=== PATIENT | female | born 1955 | race Caucasian/White ===

== ENCOUNTER 2020-01-12 12:09 | Observation (INO) ==
[2020-01-12 12:57] LABS: BASOPHILS % (AUTO) 0.5 % (0.2-1.0); EOSINOPHILS % (AUTO) 0.2 % (0.9-2.9); HEMATOCRIT 37.4 % (36.0-47.0); HEMOGLOBIN 12.7 g/dL (12.0-16.0); LYMPHOCYTES # (AUTO) 0.4 X10^3/uL (1.3-2.9); LYMPHOCYTES % (AUTO) 12.6 % (21.0-51.0); MEAN CORPUSCULAR HEMOGLOBIN 30.1 pg (27.0-34.0); MEAN CORPUSCULAR VOLUME 88.6 fL (80.0-100.0); MEAN PLATELET VOLUME 8.8 fL (7.4-11.0); MONOCYTES # (AUTO) 0.3 x10^3/uL (0.3-0.8); MONOCYTES % (AUTO) 7.6 % (0.0-13.0); NEUTROPHILS # (AUTO) 2.7 x10^3/uL (2.2-4.8); NEUTROPHILS % (AUTO) 79.1 % (42.0-75.0); PLATELET COUNT 146 X10^3/uL (150.0-450.0); RED BLOOD COUNT 4.22 X10^6/uL (3.5-5.4); RED CELL DISTRIBUTION WIDTH 12.7 % (11.6-16.5); WHITE BLOOD COUNT 3.4 X10^3/uL (3.6-10.0)
[2020-01-12 13:04] LABS: ABG BASE EXCESS 9.4 mmol/L (-2.0-2.0)
[2020-01-12 13:05] LABS: ABG ALLEN TEST POS; ABG HCO3 32.4 mmol/L (22-26)
[2020-01-12 13:09] LABS: ALBUMIN 3.1 g/dL (3.4-5.0); CALCIUM 7.8 mg/dL (8.5-10.1); CARBON DIOXIDE 32.8 mmol/L (21-32); COR CA(FOR HYPOALB) 8.5 mg/dL (8.5-10.1); CREATININE 1.18 mg/dL (0.55-1.02); TOTAL PROTEIN 6.6 g/dL (6.4-8.2)
--- NOTE | 2020-01-12 13:10 | RAD ---
CHEST, 1 VIEWHISTORY: SOBStudy: Single view of the chest.Comparison:NoneFindings:The cardiomediastinal silhouette is normal. Bilateral interstitial prominence, possible early alveolar infiltrates. No focal consolidations, pleural effusions or pneumothorax. Osseous structures demonstrate no acute abnormality.IMPRESSION:1. Bilateral interstitial prominence and early alveolar infiltrates. Findings may represent atypical infection, including viral etiologies.Electronically signed by: JEANMARIE WALTON (Jan 12, 2020 13:09:38)
--- NOTE | 2020-01-12 13:58 | DR.FEVERAD ---
HPI Time seen Time Seen by Provider: 01/12/20 12:37 PCP Primary Care Physician: BAO LEHMAN Complaints/Symptoms Chief Complaint:: PT C/O FEVER , WEAKNESS , PT TEST FOR COVID BY HER PCP PT AWAITING RESULTS ,BR Self Treatment fo Chief Complaint: LEVAQUIN , RESP [place], COVID-19 Coronavirus risk:travel/contact w/high risk person: No Has patient experienced Coronavirus symptoms: Yes Coronavirus symptoms experienced: Fever, Coughing and Shortness of Breath Source History Provided: Patient Mode of Arrival Mode of Arrival: Ambulatory Timing Onset of Chief Complaint: 01/06/20 PMH PMH Past Medical History: No Past Surgical History: Yes Surgical History: Appendectomy and Hysterectomy Past Surgical History Comment: KNEE SURGERY, CATARACT. Family History History of Family Medical Conditions: Yes Family Medical History: Diabetes Mellitus and Cancer Family Medical History Comment: SHERIF QUISPE Social History Does patient currently use any type of tobacco product: No Have you used tobacco products in the last 12 months: No Type of Tobacco Use: None Does any household member use tobacco: No Alcohol Use: None Do you use any recreational Drugs:: No Lives With: Family Lives Where: Home Travel Risk Coronavirus risk:travel/contact w/high risk person: No Has patient experienced Coronavirus symptoms: Yes Coronavirus symptoms experienced: Fever, Coughing and Shortness of Breath Infectious screening In the last 2 months have you had wt loss of >10#?: NO Have you had fever, night sweats or hemotysis?: No Have you traveled outside the country in the last 6 months?: No Isolation: Droplet PE Vital Signs Vitals: Temperature 97.6 F Pulse Rate 75 Respiratory Rate 20 Blood Pressure 140/63 O2 Sat by Pulse Oximetry 91 ROR Labs Reviewed Result Diagrams: 01/12/20 12:50 01/12/20 12:50 Laboratory: WBC 3.4 X10^3/uL (3.6-10.0) L 01/12/20 12:50 RBC 4.22 X10^6/uL (3.5-5.4) 01/12/20 12:50 Hgb 12.7 g/dL (12.0-16.0) 01/12/20 12:50 Hct 37.4 % (36.0-47.0) 01/12/20 12:50 MCV 88.6 fL (80.0-100.0) 01/12/20 12:50 MCH 30.1 pg (27.0-34.0) 01/12/20 12:50 MCHC 34.0 g/dL (33.0-35.0) 01/12/20 12:50 RDW 12.7 % (11.6-16.5) 01/12/20 12:50 Plt Count 146 X10^3/uL (150.0-450.0) L 01/12/20 12:50 MPV 8.8 fL (7.4-11.0) 01/12/20 12:50 Neut % (Auto) 79.1 % (42.0-75.0) H 01/12/20 12:50 Lymph % (Auto) 12.6 % (21.0-51.0) L 01/12/20 12:50 [place] % (Auto) 7.6 % (0.0-13.0) 01/12/20 12:50 Eos % (Auto) 0.2 % (0.9-2.9) L 01/12/20 12:50 Baso % (Auto) 0.5 % (0.2-1.0) 01/12/20 12:50 Neut # (Auto) 2.7 x10^3/uL (2.2-4.8) 01/12/20 12:50 Lymph # (Auto) 0.4 X10^3/uL (1.3-2.9) L 01/12/20 12:50 [place] # (Auto) 0.3 x10^3/uL (0.3-0.8) 01/12/20 12:50 Eos # (Auto) 0.0 x10^3/uL (0.0-0.2) 01/12/20 12:50 Baso # (Auto) 0.0 X10^3/uL (0.0-0.1) 01/12/20 12:50 Absolute Nucleated RBC 0.1 /100WBC 01/12/20 12:50 Sample Site Rr 01/12/20 12:37 ABG pH 7.550 (7.35-7.45) H 01/12/20 12:37 ABG pCO2 37.0 mmHg (35.0-45.0) 01/12/20 12:37 ABG pO2 54.0 mmHg (80.0-100.0) L 01/12/20 12:37 ABG HCO3 32.4 mmol/L (22-26) H* 01/12/20 12:37 ABG O2 Saturation 92.0 % (90-100) 01/12/20 12:37 ABG Base Excess 9.4 mmol/L (-2.0-2.0) H 01/12/20 12:37 Nicolás Test Pos 01/12/20 12:37 A-a Gradient 49.0 mmHg 01/12/20 12:37 FiO2 21.0 01/12/20 12:37 Blood Gas Comments Pt antony well. llj 01/12/20 12:37 Sodium 130 mmol/L (136-145) L 01/12/20 12:50 Corrected Sodium 130 mmol/L (136-145) L 01/12/20 12:50 Potassium 3.5 mmol/L (3.5-5.1) 01/12/20 12:50 Chloride 94 mmol/L (98-107) L 01/12/20 12:50 Carbon Dioxide 32.8 mmol/L (21-32) H 01/12/20 12:50 BUN 12 mg/dL (7-18) 01/12/20 12:50 Creatinine 1.18 mg/dL (0.55-1.02) H 01/12/20 12:50 Est GFR (MDRD) Af Amer 59 (>60) 01/12/20 12:50 Est GFR (MDRD) Non-Af 49 (>60) L 01/12/20 12:50 Glucose 115 mg/dL (65-99) H 01/12/20 12:50 Calcium 7.8 mg/dL (8.5-10.1) L 01/12/20 12:50 Corrected Calcium 8.5 mg/dL (8.5-10.1) 01/12/20 12:50 Total Bilirubin 0.30 mg/dL (0.2-1.0) 01/12/20 12:50 AST 42 Units/L (15-37) H 01/12/20 12:50 ALT 39 Units/L (12-78) 01/12/20 12:50 Alkaline Phosphatase 62 Units/L (46-116) 01/12/20 12:50 Troponin I < 0.02 ng/mL (0-1.5) 01/12/20 12:50 Total Protein 6.6 g/dL (6.4-8.2) 01/12/20 12:50 Albumin 3.1 g/dL (3.4-5.0) L 01/12/20 12:50 Globulin 3.5 g/dL (2.5-4.5) 01/12/20 12:50 Albumin/Globulin Ratio 0.9 Ratio (1.1-2.1) L 01/12/20 12:50 Opioid Opioid Risk Tool Age (Serafin box if 16-45): No History of Preadolescent Sexual Abuse: No Total: 0 Total Score Risk Category: Low Risk Copyright: Tee AVELAR predicting aberrant behaviors Diagnosis Discharge Problem: Pneumonia Instructions Forms: Excuse From Work Precautions for COVID19 Patient Portal Social Distancing
[2020-01-12] MEDS: NS 1000 ML 1,000 ML IV SCH (15:31)
[2020-01-12] MEDS: ASCORBIC ACID INJ MULTI-DOSE VIAL 1,500 MG in NS 100 ML IV 100 ML IV SCH ×2 (15:36→20:17)
[2020-01-12 15:57] VITALS: BMI 31.9
[2020-01-12] MEDS ORDERED: CORTEF PO SCH (17:00)
[2020-01-12] MEDS ORDERED: DECADRON TAB PO SCH (17:00)
[2020-01-12] MEDS ORDERED: ASCORBIC ACID INJ MULTI-DOSE VIAL 1,500 MG in NS 100 ML IV 100 ML IV SCH (17:10)
[2020-01-12] MEDS ORDERED: GLUCOPHAGE XR 24-HR PO SCH (17:10)
[2020-01-12] MEDS ORDERED: NS 1000 ML 1,000 ML IV SCH (17:10)
[2020-01-12] MEDS ORDERED: VITAMIN D (1.25MG) PO SCH (17:10)
[2020-01-12] MEDS: NORVASC TAB 5 MG PO SCH (17:42)
[2020-01-12] MEDS: ELAVIL PO SCH ×2 (17:47→18:00)
[2020-01-12] MEDS: XANAX PO SCH (17:47)
[2020-01-12] MEDS: DECADRON TAB PO SCH (17:47)
[2020-01-12] MEDS: ECOTRIN TAB 325 MG PO SCH (17:47)
[2020-01-12] MEDS: PriLOSEC PO SCH (17:47)
[2020-01-12] MEDS: PRAVACHOL PO SCH (17:48)
[2020-01-12] MEDS: ZyrTEC TAB 10 MG PO SCH (17:48)
[2020-01-12] MEDS: PULMICORT NEB TX 0.5 MG NEB SCH ×2 (17:57→21:57)
[2020-01-12] MEDS: HEMOCYTE-PLUS PO SCH (18:05)
[2020-01-12] MEDS: BIOTIN 1 MG PO SCH (18:14)
[2020-01-12] MEDS ORDERED: TYLENOL 325 MG TAB PO PRN (19:25)
[2020-01-12] MEDS ORDERED: LOVENOX INJ 30 MG SYR SC ONE (19:46)
[2020-01-12] MEDS ORDERED: ZINC SULFATE ONE (19:46)
[2020-01-12] MEDS ORDERED: PLAQUENIL PO ONE (19:47)
[2020-01-12] MEDS: LOVENOX INJ 30 MG SYR SC SCH (20:17)
[2020-01-12] MEDS: PLAQUENIL PO SCH (20:17)
[2020-01-12] MEDS: ZINC SULFATE PO SCH (20:17)
[2020-01-12] MEDS ORDERED: LOVENOX INJ 30 MG SYR SC SCH (21:00)
[2020-01-12] MEDS ORDERED: THIAMINE HCL INJ IM SCH (21:00)
[2020-01-13] MEDS: ASCORBIC ACID INJ MULTI-DOSE VIAL 1,500 MG in NS 100 ML IV 100 ML IV SCH ×4 (02:53→20:47)
[2020-01-13 05:07] LABS: RED BLOOD COUNT 4.62 X10^6/uL (3.5-5.4)
[2020-01-13 05:17] LABS: BASOPHILS % (AUTO) 0.3 % (0.2-1.0); EOSINOPHILS % (AUTO) 0.2 % (0.9-2.9); HEMATOCRIT 41.2 % (36.0-47.0); HEMOGLOBIN 13.8 g/dL (12.0-16.0); LYMPHOCYTES # (AUTO) 0.5 X10^3/uL (1.3-2.9); LYMPHOCYTES % (AUTO) 26.9 % (21.0-51.0); MEAN CORPUSCULAR HEMOGLOBIN 29.9 pg (27.0-34.0); MEAN CORPUSCULAR HGB CONC 33.5 g/dL (33.0-35.0); MEAN CORPUSCULAR VOLUME 89.1 fL (80.0-100.0); MEAN PLATELET VOLUME 9.4 fL (7.4-11.0); MONOCYTES # (AUTO) 0.1 x10^3/uL (0.3-0.8); MONOCYTES % (AUTO) 6.8 % (0.0-13.0); NEUTROPHILS # (AUTO) 1.2 x10^3/uL (2.2-4.8); NEUTROPHILS % (AUTO) 65.8 % (42.0-75.0); PLATELET COUNT 161 X10^3/uL (150.0-450.0); RED CELL DISTRIBUTION WIDTH 12.7 % (11.6-16.5)
[2020-01-13 05:28] LABS: ALANINE AMINOTRANSFERASE 42 Units/L (12-78); ALKALINE PHOSPHATASE 65 Units/L (46-116); ASPARTATE AMINO TRANSFERASE 45 Units/L (15-37); BLOOD UREA NITROGEN 14 mg/dL (7-18); CALCIUM 8.1 mg/dL (8.5-10.1); CARBON DIOXIDE 30.6 mmol/L (21-32); CHLORIDE 94 mmol/L (98-107); COR CA(FOR HYPOALB) 8.9 mg/dL (8.5-10.1); COR NA(FOR HYPERGLY) 134 mmol/L (136-145); SODIUM 133 mmol/L (136-145); eGFR NON BLACK RACES 59 (>60)
[2020-01-13 05:33] LABS: WHITE BLOOD COUNT 1.9 X10^3/uL (3.6-10.0)
[2020-01-13 06:33] LABS: PLATELET MORPHOLOGY COMMENT NORMAL (NORMAL)
[2020-01-13] MEDS ORDERED: REMDESIVIR (INVESTIGATIONAL DRUG GS-5734) 200 MG in NS 250 ML IV 250 ML IV ONE (08:34)
[2020-01-13] MEDS ORDERED: VITAMIN D (1.25MG) PO SCH (09:00)
[2020-01-13] MEDS ORDERED: VITAMIN A PO SCH (09:00)
[2020-01-13] MEDS: PULMICORT NEB TX 0.5 MG NEB SCH ×2 (09:10→20:00)
[2020-01-13] MEDS: PROVENTIL NEB TX 0.083% 2.5MG/ 3ML NEB PRN ×2 (09:10→20:00)
[2020-01-13] MEDS ORDERED: NS 100 ML IV 100 ML IV ONE (09:17)
[2020-01-13] MEDS: DECADRON TAB PO SCH (09:52)
[2020-01-13] MEDS: ELAVIL PO SCH (09:53)
[2020-01-13] MEDS: GLUCOPHAGE XR 24-HR PO SCH ×2 (09:53→20:47)
[2020-01-13] MEDS: ECOTRIN TAB 325 MG PO SCH (09:53)
[2020-01-13] MEDS: HEMOCYTE-PLUS PO SCH (09:54)
[2020-01-13] MEDS: NORVASC TAB 5 MG PO SCH ×2 (09:54→10:14)
[2020-01-13] MEDS: LOVENOX INJ 30 MG SYR SC SCH ×2 (09:54→20:47)
[2020-01-13] MEDS: PLAQUENIL PO SCH ×2 (09:55→20:47)
[2020-01-13] MEDS: PRAVACHOL PO SCH (09:55)
[2020-01-13] MEDS: TRICOR TAB 160 MG PO SCH (09:55)
[2020-01-13] MEDS: BIOTIN 1 MG PO SCH (09:55)
[2020-01-13] MEDS: PriLOSEC PO SCH (09:55)
[2020-01-13] MEDS: ZINC SULFATE PO SCH ×2 (09:56→20:47)
[2020-01-13] MEDS: VITAMIN B-1 PO SCH ×2 (09:56→20:47)
[2020-01-13] MEDS: ZyrTEC TAB 10 MG PO SCH (09:57)
[2020-01-13] MEDS: XANAX PO SCH (10:13)
[2020-01-13] MEDS ORDERED: TUSSIONEX PENNKINETIC SUSP PO PRN (11:44)
[2020-01-13] MEDS: NS 1000 ML 1,000 ML IV SCH (19:00)
[2020-01-13] MEDS ORDERED: PLAQUENIL PO ONE (19:31)
[2020-01-14] MEDS: ASCORBIC ACID INJ MULTI-DOSE VIAL 1,500 MG in NS 100 ML IV 100 ML IV SCH ×4 (03:51→21:20)
[2020-01-14] MEDS ORDERED: NS 100 ML IV 100 ML IV ONE (08:24)
[2020-01-14] MEDS ORDERED: VITAMIN D3 125 mcg (5,000 UNITS) PO SCH (09:00)
[2020-01-14] MEDS: PROVENTIL NEB TX 0.083% 2.5MG/ 3ML NEB PRN (09:10)
[2020-01-14] MEDS: PULMICORT NEB TX 0.5 MG NEB SCH ×2 (09:10→20:25)
[2020-01-14] MEDS: ZyrTEC TAB 10 MG PO SCH (09:15)
[2020-01-14] MEDS: TRICOR TAB 160 MG PO SCH (09:15)
[2020-01-14] MEDS: VITAMIN B-1 PO SCH ×2 (09:15→21:20)
[2020-01-14] MEDS: ZINC SULFATE PO SCH ×2 (09:15→21:20)
[2020-01-14] MEDS: VITAMIN A PO SCH (09:15)
[2020-01-14] MEDS: VITAMIN D3 125 mcg (5,000 UNITS) PO SCH (09:15)
[2020-01-14] MEDS: PRAVACHOL PO SCH (09:16)
[2020-01-14] MEDS: PriLOSEC PO SCH (09:16)
[2020-01-14] MEDS: PLAQUENIL PO SCH ×2 (09:16→21:20)
[2020-01-14] MEDS: HEMOCYTE-PLUS PO SCH (09:17)
[2020-01-14] MEDS: LOVENOX INJ 30 MG SYR SC SCH ×2 (09:17→21:25)
[2020-01-14] MEDS: ELAVIL PO SCH (09:18)
[2020-01-14] MEDS: ECOTRIN TAB 325 MG PO SCH (09:18)
[2020-01-14] MEDS: DECADRON TAB PO SCH (09:18)
[2020-01-14] MEDS: GLUCOPHAGE XR 24-HR PO SCH ×2 (09:18→21:20)
[2020-01-14] MEDS: BIOTIN 1 MG PO SCH (09:19)
[2020-01-14] MEDS: XANAX PO SCH ×2 (10:06→21:25)
[2020-01-14] MEDS ORDERED: LEXAPRO ONE (10:42)
[2020-01-14] MEDS: REMDESIVIR (INVESTIGATIONAL DRUG GS-5734) 100 MG in NS 250 ML IV 250 ML IV SCH (10:52)
[2020-01-14] MEDS: LEXAPRO PO SCH (10:52)
[2020-01-14] MEDS: NS 1000 ML 1,000 ML IV SCH ×2 (19:10→20:18)
[2020-01-15] MEDS: ASCORBIC ACID INJ MULTI-DOSE VIAL 1,500 MG in NS 100 ML IV 100 ML IV SCH ×4 (02:40→20:59)
[2020-01-15 05:40] LABS: BASOPHILS % (AUTO) 0.3 % (0.2-1.0); HEMATOCRIT 33.5 % (36.0-47.0); LYMPHOCYTES # (AUTO) 0.6 X10^3/uL (1.3-2.9); MEAN CORPUSCULAR HEMOGLOBIN 30.5 pg (27.0-34.0); MEAN CORPUSCULAR HGB CONC 34.3 g/dL (33.0-35.0); MEAN CORPUSCULAR VOLUME 88.8 fL (80.0-100.0); MEAN PLATELET VOLUME 9.8 fL (7.4-11.0); MONOCYTES # (AUTO) 0.7 x10^3/uL (0.3-0.8); MONOCYTES % (AUTO) 7.8 % (0.0-13.0); NEUTROPHILS # (AUTO) 7.7 x10^3/uL (2.2-4.8); NEUTROPHILS % (AUTO) 84.9 % (42.0-75.0); PLATELET COUNT 212 X10^3/uL (150.0-450.0); RED BLOOD COUNT 3.78 X10^6/uL (3.5-5.4); RED CELL DISTRIBUTION WIDTH 13.1 % (11.6-16.5)
[2020-01-15 06:00] LABS: ALANINE AMINOTRANSFERASE 35 Units/L (12-78); ALBUMIN 2.4 g/dL (3.4-5.0); ALKALINE PHOSPHATASE 48 Units/L (46-116); ASPARTATE AMINO TRANSFERASE 35 Units/L (15-37); BLOOD UREA NITROGEN 21 mg/dL (7-18); CALCIUM 7.7 mg/dL (8.5-10.1); CARBON DIOXIDE 27.9 mmol/L (21-32); CHLORIDE 104 mmol/L (98-107); CREATININE 0.95 mg/dL (0.55-1.02); SODIUM 141 mmol/L (136-145); TOTAL PROTEIN 5.5 g/dL (6.4-8.2); eGFR NON BLACK RACES > 60 (>60)
--- NOTE | 2020-01-15 06:05 | RAD ---
HISTORYPneumonia SOBSTUDYAP [id number]/29/2020FINDINGSNormal heart size with sternal wires. Diffuse bilateral interstitial prominence as before. Increasing peripheral infiltrate in the right midlung. No pleural fluid or pneumothorax seen.IMPRESSIONIncreasing infiltrate in the right midlung consistent with pneumonia. No other interval change noted since 01/12/2020.Electronically signed by: ALAINA DOMINGUEZ (Jan 15, 2020 06:04:34)
[2020-01-15 06:29] LABS: HEMOGLOBIN 11.5 g/dL (12.0-16.0)
[2020-01-15] MEDS: PULMICORT NEB TX 0.5 MG NEB SCH ×2 (08:20→20:30)
[2020-01-15] MEDS: DECADRON TAB PO SCH (08:30)
[2020-01-15] MEDS: XANAX PO SCH ×2 (08:30→21:01)
[2020-01-15] MEDS: REMDESIVIR (INVESTIGATIONAL DRUG GS-5734) 100 MG in NS 250 ML IV 250 ML IV SCH (08:30)
[2020-01-15] MEDS: GLUCOPHAGE XR 24-HR PO SCH ×2 (08:30→21:00)
[2020-01-15] MEDS: PRAVACHOL PO SCH (08:30)
[2020-01-15] MEDS: VITAMIN A PO SCH (08:30)
[2020-01-15] MEDS: VITAMIN B-1 PO SCH ×2 (08:30→21:00)
[2020-01-15] MEDS: VITAMIN D3 125 mcg (5,000 UNITS) PO SCH (08:30)
[2020-01-15] MEDS: TRICOR TAB 160 MG PO SCH (08:30)
[2020-01-15] MEDS: ELAVIL PO SCH (08:30)
[2020-01-15] MEDS: ECOTRIN TAB 325 MG PO SCH (08:30)
[2020-01-15] MEDS: PriLOSEC PO SCH (08:30)
[2020-01-15] MEDS: ZyrTEC TAB 10 MG PO SCH (08:30)
[2020-01-15] MEDS: HEMOCYTE-PLUS PO SCH (08:30)
[2020-01-15] MEDS: LOVENOX INJ 30 MG SYR SC SCH ×2 (08:30→21:00)
[2020-01-15] MEDS: PLAQUENIL PO SCH ×2 (08:30→21:01)
[2020-01-15] MEDS: ZINC SULFATE PO SCH ×2 (08:30→21:00)
[2020-01-15] MEDS ORDERED: LEXAPRO ONE ×2 (09:08→14:19)
[2020-01-15] MEDS ORDERED: XOPENEX 1.25 MG/3 ML NEBULE NEB SCH (10:30)
[2020-01-15] MEDS: AUGMENTIN 500 MG/125 MG TAB PO SCH ×3 (12:00→18:48)
[2020-01-15] MEDS: LEXAPRO PO SCH (12:30)
[2020-01-15] MEDS: NS 1000 ML 1,000 ML IV SCH (19:03)
[2020-01-16] MEDS: ASCORBIC ACID INJ MULTI-DOSE VIAL 1,500 MG in NS 100 ML IV 100 ML IV SCH (03:30)
[2020-01-16] MEDS: AUGMENTIN 500 MG/125 MG TAB PO SCH (03:30)
[2020-01-16 05:40] LABS: BASOPHILS % (AUTO) 0.2 % (0.2-1.0); EOSINOPHILS % (AUTO) 0.1 % (0.9-2.9); HEMOGLOBIN 11.5 g/dL (12.0-16.0); LYMPHOCYTES # (AUTO) 0.8 X10^3/uL (1.3-2.9); MEAN CORPUSCULAR HEMOGLOBIN 30.2 pg (27.0-34.0); MEAN CORPUSCULAR HGB CONC 33.9 g/dL (33.0-35.0); MEAN CORPUSCULAR VOLUME 89.2 fL (80.0-100.0); MEAN PLATELET VOLUME 9.8 fL (7.4-11.0); MONOCYTES # (AUTO) 0.6 x10^3/uL (0.3-0.8); MONOCYTES % (AUTO) 7.9 % (0.0-13.0); NEUTROPHILS # (AUTO) 5.9 x10^3/uL (2.2-4.8); NEUTROPHILS % (AUTO) 80.8 % (42.0-75.0); PLATELET COUNT 223 X10^3/uL (150.0-450.0); RED BLOOD COUNT 3.81 X10^6/uL (3.5-5.4); WHITE BLOOD COUNT 7.3 X10^3/uL (3.6-10.0)
[2020-01-16 05:57] LABS: ALANINE AMINOTRANSFERASE 29 Units/L (12-78); ALBUMIN 2.2 g/dL (3.4-5.0); ALKALINE PHOSPHATASE 47 Units/L (46-116); ASPARTATE AMINO TRANSFERASE 31 Units/L (15-37); BLOOD UREA NITROGEN 22 mg/dL (7-18); CALCIUM 7.3 mg/dL (8.5-10.1); CHLORIDE 107 mmol/L (98-107); COR CA(FOR HYPOALB) 8.7 mg/dL (8.5-10.1); SODIUM 143 mmol/L (136-145); TOTAL PROTEIN 5.2 g/dL (6.4-8.2); eGFR NON BLACK RACES > 60 (>60)
--- NOTE | 2020-01-16 07:14 | RAD ---
HISTORYSOBSTUDYPortable AP [id number]/01/2020FINDINGSThere is no change in appearance of the chest since 1 day earlier. There is a linear infiltrate persisting in the right midlung. There is no additional consolidation, developing pulmonary edema or pleural fluid.IMPRESSIONStable linear infiltrate right midlung consistent with localized infection or atelectasis.. No change since 01/15/2020.Electronically signed by: ALAINA DOMINGUEZ (Jan 16, 2020 07:03:24)
[2020-01-16] MEDS: PULMICORT NEB TX 0.5 MG NEB SCH (08:35)
[2020-01-16] MEDS ORDERED: LEXAPRO ONE (09:52)
[2020-01-16 13:31] VITALS: BP 141/65
== END 2020-01-16 13:30 | disposition home or self-care (01) ==
LOC: ER 12:17 → OBS 13:20 → INTOOBSV 13:20 → ICU 14:53
PROVIDERS: ADMIT Obstetrics & Gynecology Obstetrics; ATTEND Obstetrics & Gynecology Obstetrics
DX: J01.10 Acute frontal sinusitis, unspecified; E11.65 Type 2 diabetes mellitus with hyperglycemia; U07.1 COVID-19; J12.89 Other viral pneumonia; R06.02 Shortness of breath; I10 Essential (primary) hypertension
CPT/HCPCS: 36415; 36600; 71010; 71045; 80053; 82728; 82803; 84484; 85025; 86140; 87635; 94640; 96360; 96361; 96365; 96372; 99284; A4222; G0378; J1650; J3490; J7030; J7050; J7613; J7626; J8540

== ENCOUNTER 2024-02-23 23:44 | Observation (INO) ==
--- NOTE | 2024-02-24 00:37 | DR.CONMALE ---
HPI Time Seen Time Seen by Provider: 02/24/24 00:36 Complaint Self Treatment fo Chief Complaint: Enema COVID-19 Coronavirus risk:travel/contact w/high risk person: No Has patient experienced Coronavirus symptoms: No Reviewed Nurses Notes Review: Yes Timing Onset of Chief Complaint: 02/21/24 PMH PMH Past Medical History: Yes Past Medical History: Arthritis, Diabetes and Hypertension Past Medical History Comment: Lyme disease Past Surgical History: Yes Surgical History: Angioplasty/Stents Family History History of Family Medical Conditions: Yes Family Medical History: Diabetes Mellitus, Cancer and [place] Social History Do you use any recreational Drugs:: No Travel Risk Coronavirus risk:travel/contact w/high risk person: No Has patient experienced Coronavirus symptoms: No Infectious screening Have you traveled outside the country in the last 6 months?: No Isolation: Standard PE Vital Signs Vital Signs: Temp Pulse Resp BP Pulse Ox O2 Del Method 02/24/24 01:49 20 02/24/24 06:45 63 99 02/24/24 06:30 59 L 98 02/24/24 06:30 146/99 02/24/24 06:15 61 99 02/24/24 06:05 98.3 F 60 20 173/77 99 Room Air 02/24/24 03:30 20 02/24/24 01:19 20 02/23/24 23:59 98.3 F 77 22 153/72 96 ROR Labs Reviewed 02/24/24 06:20 02/24/24 06:20 Laboratory: WBC 8.3 X10^3/uL (3.6-10.0) 02/24/24 06:20 RBC 3.93 X10^6/uL (3.5-5.4) 02/24/24 06:20 Hgb 11.8 g/dL (12.0-16.0) L 02/24/24 06:20 Hct 34.9 % (36.0-47.0) L 02/24/24 06:20 MCV 88.9 fL (80.0-100.0) 02/24/24 06:20 MCH 30.1 pg (27.0-34.0) 02/24/24 06:20 MCHC 33.9 g/dL (33.0-35.0) 02/24/24 06:20 RDW 14.0 % (11.6-16.5) 02/24/24 06:20 Plt Count 229 X10^3/uL (150.0-450.0) 02/24/24 06:20 MPV 9.0 fL (7.4-11.0) 02/24/24 06:20 Neut % (Auto) 70.5 % (42.0-75.0) 02/24/24 06:20 Lymph % (Auto) 18.5 % (21.0-51.0) L 02/24/24 06:20 [place] % (Auto) 9.2 % (0.0-13.0) 02/24/24 06:20 Eos % (Auto) 1.3 % (0.9-2.9) 02/24/24 06:20 Baso % (Auto) 0.5 % (0.2-1.0) 02/24/24 06:20 Neut # (Auto) 5.8 x10^3/uL (2.2-4.8) H 02/24/24 06:20 Lymph # (Auto) 1.5 X10^3/uL (1.3-2.9) 02/24/24 06:20 [place] # (Auto) 0.8 x10^3/uL (0.3-0.8) 02/24/24 06:20 Eos # (Auto) 0.1 x10^3/uL (0.0-0.2) 02/24/24 06:20 Baso # (Auto) 0.0 X10^3/uL (0.0-0.1) 02/24/24 06:20 Absolute Nucleated RBC 0.1 /100WBC 02/24/24 06:20 Sodium 136 mmol/L (136-145) 02/24/24 06:20 Corrected Sodium 136 mmol/L (136-145) 02/24/24 06:20 Potassium 3.7 mmol/L (3.5-5.1) 02/24/24 06:20 Chloride 100 mmol/L (98-107) 02/24/24 06:20 Carbon Dioxide 26.5 mmol/L (21-32) 02/24/24 06:20 BUN 15 mg/dL (7-18) 02/24/24 06:20 Creatinine 0.75 mg/dL (0.55-1.02) 02/24/24 06:20 Est GFR (MDRD) Af Amer > 60 (>60) 02/24/24 06:20 Est GFR (MDRD) Non-Af > 60 (>60) 02/24/24 06:20 Glucose 118 mg/dL (65-99) H 02/24/24 06:20 Calcium 8.2 mg/dL (8.5-10.1) L 02/24/24 06:20 Corrected Calcium 8.8 mg/dL (8.5-10.1) 02/24/24 06:20 Total Bilirubin 0.30 mg/dL (0.2-1.0) 02/24/24 06:20 AST 20 Units/L (15-37) 02/24/24 06:20 ALT 28 Units/L (12-78) 02/24/24 06:20 Alkaline Phosphatase 74 Units/L (46-116) 02/24/24 06:20 Total Protein 6.2 g/dL (6.4-8.2) L 02/24/24 06:20 Albumin 3.3 g/dL (3.4-5.0) L 02/24/24 06:20 Globulin 2.9 g/dL (2.5-4.5) 02/24/24 06:20 Albumin/Globulin Ratio 1.1 Ratio (1.1-2.1) 02/24/24 06:20 Specimen Type Clean catch urine 02/24/24 00:23 Urine Color Dark yellow (YELLOW) 02/24/24 00:23 Urine Appearance Hazy (CLEAR) 02/24/24 00:23 Urine pH 6.0 (5.0 - 8.0) 02/24/24 00:23 Ur Specific [place] 1.025 (1.000-1.030) 02/24/24 00:23 Urine Protein 1+ (NEGATIVE) 02/24/24 00:23 Urine Glucose (UA) Negative (NEGATIVE) 02/24/24 00:23 Urine Ketones Negative (NEGATIVE) 02/24/24 00:23 Urine Blood 2+ (NEGATIVE) 02/24/24 00:23 Urine Nitrite Negative (NEGATIVE) 02/24/24 00:23 Urine Bilirubin Negative (NEGATIVE) 02/24/24 00:23 Urine Urobilinogen 1+ (NORMAL) 02/24/24 00:23 Ur Leukocyte Esterase Negative (NEGATIVE) 02/24/24 00:23 Urine RBC 3-5 /HPF (0-3) A 02/24/24 00:23 Urine WBC 0-2 /HPF (0-5) 02/24/24 00:23 Ur Squamous Epith Cells Rare /HPF (NEGATIVE) 02/24/24 00:23 Calcium Oxalate Crystal Moderate /HPF (NEGATIVE) 02/24/24 00:23 Urine Bacteria Negative /HPF (NEGATIVE) 02/24/24 00:23 Ur Culture Indicated? No/not indicated 02/24/24 00:23 Opioid Opioid Risk Tool Age (Serafin box if 16-45): No History of Preadolescent Sexual Abuse: No Total: 0 Total Score Risk Category: Low Risk Copyright: Tee AVELAR predicting aberrant behaviors Discharge Plan Diagnosis Discharge Problem: Abdominal pain, Constipated, Colitis Discharge Plan Patient Disposition: ADMITTED INPATIENT Condition: Stable Orders to Discharge Patient Discharge Orders: Transfer (Routine); Ordered 02/24/24 Ordered By: LACEY FOSTER
[2024-02-24 00:58] LABS: BILIRUBIN,URINE NEGATIVE (NEGATIVE); BLOOD/HEMOGLOBIN,URINE 2+ (NEGATIVE); GLUCOSE, URINE NEGATIVE (NEGATIVE); KETONES,URINE NEGATIVE (NEGATIVE); LEUKOCYTE ESTERASE ,URINE NEGATIVE (NEGATIVE); NITRITES,URINE NEGATIVE (NEGATIVE); PROTEIN,URINE 1+ (NEGATIVE); UROBILINOGEN,URINE 1+ (NORMAL)
[2024-02-24 01:01] LABS: APPEARANCE,URINE HAZY (CLEAR); COLOR,URINE DARK YELLOW (YELLOW)
[2024-02-24] MEDS: ZOFRAN INJ 4 MG VIAL IM ONE (01:04)
[2024-02-24 01:05] LABS: SQUAMOUS EPITHELIAL CELL,UR RARE /HPF (NEGATIVE)
[2024-02-24 01:06] LABS: BACTERIA,URINE NEGATIVE /HPF (NEGATIVE); CALCIUM OXALATE CRYSTALS,UR MODERATE /HPF (NEGATIVE)
[2024-02-24] MEDS: FLEET ENEMA ADULT PR ONE (01:08)
[2024-02-24] MEDS: TORADOL 30 MG VIAL IM PRN (01:19)
[2024-02-24] MEDS: MORPHINE SULFATE INJ 2 MG INJ IM ONE (01:25)
[2024-02-24] MEDS: TORADOL 30 MG VIAL IM ONE (03:30)
--- NOTE | 2024-02-24 04:51 | CT ---
CT ABDOMEN AND PELVIS WITHOUT CONTRAST HISTORY: Abdominal pain COMPARISON: None TECHNIQUE: Axial images were obtained of the abdomen and pelvis without IV contrast. Sagittal and coronal reform atted images were provided. All images were reviewed in a variety of windows and levels. RADIATION REDUCTION TECHNIQUE: Automated exposure control, adjustment of the mA or kV according to pa tient size, or iterative reconstruction techniques were used. FINDINGS: Please note that lack of IV contrast does limit evaluation of the soft tissues and vascular detail. The visualized lower lung zones are clear. The heart size is within normal limits. There is no evide nce of a pericardial effusion. The liver, spleen, pancreas, adrenal glands, and kidneys are grossly unremarkable. The gallbladder is grossly unremarkable. There is no evidence of stones or signs of obstructive uropathy. There is pericolonic edema throughout the sigmoid colon. The stomach, small bowel, and remaining col on are grossly unremarkable. Moderate degree of constipation is seen throughout the colon. There are no inflammatory changes in the right lower quadrant to suggest secondary signs of acute appendicitis . There is no evidence of retroperitoneal or mesenteric lymphadenopathy. The visualized bones demonstrate degenerative changes. There are no concerning lytic or blastic lesio ns identified. IMPRESSION: 1. Moderate degree of constipation is seen throughout the colon. 2. There is pericolonic edema throughout the sigmoid colon. This may be associated with colitis that is infectious or inflammatory in etiology. I would also consider malignancy in the differential andrew gnosis. THIS IS AN ELECTRONICALLY VERIFIED FINAL REPORT 02/24/2024 4:48 AM - Electronically signed by Tahir Kellogg MD
[2024-02-24] MEDS: FLAGYL IV PREMIX 500 MG BAG 500 MG/100 ML BAG IV ONE (06:32)
[2024-02-24] MEDS: NS 1,000 ML IV 1,000 ML IV SCH (06:32)
[2024-02-24 06:41] LABS: BASOPHILS % (AUTO) 0.5 % (0.2-1.0); EOSINOPHILS # (AUTO) 0.1 x10^3/uL (0.0-0.2); EOSINOPHILS % (AUTO) 1.3 % (0.9-2.9); HEMATOCRIT 34.9 % (36.0-47.0); HEMOGLOBIN 11.8 g/dL (12.0-16.0); LYMPHOCYTES # (AUTO) 1.5 X10^3/uL (1.3-2.9); LYMPHOCYTES % (AUTO) 18.5 % (21.0-51.0); MEAN CORPUSCULAR HEMOGLOBIN 30.1 pg (27.0-34.0); MEAN CORPUSCULAR HGB CONC 33.9 g/dL (33.0-35.0); MEAN CORPUSCULAR VOLUME 88.9 fL (80.0-100.0); MONOCYTES # (AUTO) 0.8 x10^3/uL (0.3-0.8); MONOCYTES % (AUTO) 9.2 % (0.0-13.0); NEUTROPHILS # (AUTO) 5.8 x10^3/uL (2.2-4.8); NEUTROPHILS % (AUTO) 70.5 % (42.0-75.0); PLATELET COUNT 229 X10^3/uL (150.0-450.0); RED BLOOD COUNT 3.93 X10^6/uL (3.5-5.4); WHITE BLOOD COUNT 8.3 X10^3/uL (3.6-10.0)
[2024-02-24 06:43] LABS: ALANINE AMINOTRANSFERASE 28 Units/L (12-78); ALBUMIN 3.3 g/dL (3.4-5.0); ALKALINE PHOSPHATASE 74 Units/L (46-116); ASPARTATE AMINO TRANSFERASE 20 Units/L (15-37); BLOOD UREA NITROGEN 15 mg/dL (7-18); CALCIUM 8.2 mg/dL (8.5-10.1); CARBON DIOXIDE 26.5 mmol/L (21-32); CHLORIDE 100 mmol/L (98-107); COR CA(FOR HYPOALB) 8.8 mg/dL (8.5-10.1); COR NA(FOR HYPERGLY) 136 mmol/L (136-145); CREATININE 0.75 mg/dL (0.55-1.02); GLUCOSE 118 mg/dL (65-99); POTASSIUM 3.7 mmol/L (3.5-5.1); SODIUM 136 mmol/L (136-145); TOTAL PROTEIN 6.2 g/dL (6.4-8.2); eGFR NON BLACK RACES > 60 (>60)
--- NOTE | 2024-02-24 07:41 | RAD ---
EXAM: KUB HISTORY: Pt c/o constant abdominal pain. She states she has been having problems with constipation since last Friday. ; HTN, DM, LYME DISEASE SX: ANGIO/STENTS COMPARISON: None FINDINGS: Evaluation of the abdomen demonstrates a nonobstructive bowel gas pattern. Moderate colonic fecal bur den. No evidence of pneumoperitoneum. No pathologic soft tissue calcification. No acute osseous abnor mality. IMPRESSION: No acute abdominal process. THIS IS AN ELECTRONICALLY VERIFIED FINAL REPORT 02/24/2024 7:36 AM - Electronically signed by Bethel Cortez MD
[2024-02-24] MEDS ORDERED: ZOFRAN INJ 4 MG VIAL IVP PRN (08:38)
[2024-02-24 09:30] VITALS: BMI 26.9
[2024-02-24] MEDS: VITAMIN D3 25 mcg (1,000 UNITS) PO SCH (09:43)
[2024-02-24] MEDS: BENICAR PO SCH (09:44)
[2024-02-24] MEDS: ASPIRIN PO SCH (09:45)
[2024-02-24] MEDS: FERROUS GLUCONATE PO SCH (09:45)
[2024-02-24] MEDS: PriLOSEC PO SCH (09:46)
[2024-02-24] MEDS: CHRONULAC PO SCH (09:56)
[2024-02-24] MEDS: PEPCID 20 MG VIAL 20 MG in NS 50 ML IV 50 ML IV SCH (09:57)
[2024-02-24] MEDS ORDERED: CHRONULAC PO SCH (10:00)
[2024-02-24] MEDS: CIPRO IV 200 MG PREMIX* 200 MG/100 ML BAG IV SCH (10:20)
[2024-02-24] MEDS: DEMEROL INJ IVP PRN (10:20)
--- NOTE | 2024-02-24 12:59 | DR.H&P ---
H&P History & Physical for Day of: H&P Date: 02/24/24 Chief Complaint Chief Complaint: abdominal pain History of Present Illness History of Present Illness: Ms. Nagy is a 68-year-old female with a past medical history of anxiety, diabetes, hypertension, GERD and hyperlipidemia presented with worsening abdominal pain. She reports having history of constipation which has worsened recently. She did discuss it with her PCP few days ago and was told to take a enema at home. She states she did not have any relief. She started noticing worsening pain yesterday which made her come to the ER. ER workup showed UA negative, KUB negative, CTAP showed moderate constipation and colitis. Her labs did not show any pertinent abnormalities. She was given multiple enemas in the ER with not much outcome. She was also started on IV fluids and antibiotics. Labs/imaging reviewed: -WBC 8.3 hemoglobin 11.8 K3.7 -KUB reviewed -CTAP reviewed Plan: Continue hydration with normal saline, continue ciprofloxacin, and Flagyl. Will add lactulose. Replace electrolytes as per protocol. Resume home medications. Patient is currently on full liquid diet and would like to be advanced, will change to soft diet. Continue pain control and antiemetics as needed. Monitor a.m. labs/imaging. Past Medical History Past Medical History: Arthritis, Diabetes and Hypertension Past Surgical History Surgical History: Angioplasty/Stents, Hysterectomy and Ortho Surgery Family History Family Medical History: Diabetes Mellitus, Cancer and [place] Social History Does patient currently use any type of tobacco product: No Type of Tobacco Use: None Alcohol Use: Occasionally Medications Home Medications: Home Medications Medication Instructions Recorded Confirmed Type cetirizine 10 mg tablet (Zyrtec) 10 mg PO DAILY 01/12/20 02/24/24 History metformin 500 mg tablet,extended 500 mg PO DAILY 01/12/20 02/24/24 History release 24 hr omeprazole magnesium 20 mg 20 mg PO DAILY 01/12/20 02/24/24 History tablet,delayed release (Prilosec OTC) olmesartan 40 mg tablet 40 mg PO QDAY 05/27/23 02/24/24 History rosuvastatin 10 mg tablet 10 mg PO QPM 05/27/23 02/24/24 History alprazolam 0.5 mg tablet (Xanax) 0.5 mg PO BID 02/24/24 02/24/24 History aspirin 325 mg tablet 325 mg PO QDAY 02/24/24 02/24/24 History cholecalciferol (vitamin D3) 25 25 mcg PO QDAY 02/24/24 02/24/24 History mcg (1,000 unit) capsule (Vitamin D3) ferrous sulfate 325 mg (65 mg 325 mg PO QDAY 02/24/24 02/24/24 History iron) tablet Allergies Allergies Allergy/AdvReac Type Severity Reaction Status Date / Time mometasone furoate Allergy Verified 01/22/24 15:29 [From Nasonex] codeine AdvReac Verified 01/22/24 15:29 Sulfa (Sulfonamide AdvReac Verified 01/22/24 15:29 Antibiotics) [SULFA] triamcinolone [From Kenalog] AdvReac Verified 01/22/24 15:29 Labs 02/24/24 06:20 02/24/24 06:20 Labs: Laboratory WBC 8.3 X10^3/uL (3.6-10.0) 02/24/24 06:20 RBC 3.93 X10^6/uL (3.5-5.4) 02/24/24 06:20 Hgb 11.8 g/dL (12.0-16.0) L 02/24/24 06:20 Hct 34.9 % (36.0-47.0) L 02/24/24 06:20 MCV 88.9 fL (80.0-100.0) 02/24/24 06:20 MCH 30.1 pg (27.0-34.0) 02/24/24 06:20 MCHC 33.9 g/dL (33.0-35.0) 02/24/24 06:20 RDW 14.0 % (11.6-16.5) 02/24/24 06:20 Plt Count 229 X10^3/uL (150.0-450.0) 02/24/24 06:20 MPV 9.0 fL (7.4-11.0) 02/24/24 06:20 Neut % (Auto) 70.5 % (42.0-75.0) 02/24/24 06:20 Lymph % (Auto) 18.5 % (21.0-51.0) L 02/24/24 06:20 [place] % (Auto) 9.2 % (0.0-13.0) 02/24/24 06:20 Eos % (Auto) 1.3 % (0.9-2.9) 02/24/24 06:20 Baso % (Auto) 0.5 % (0.2-1.0) 02/24/24 06:20 Neut # (Auto) 5.8 x10^3/uL (2.2-4.8) H 02/24/24 06:20 Lymph # (Auto) 1.5 X10^3/uL (1.3-2.9) 02/24/24 06:20 [place] # (Auto) 0.8 x10^3/uL (0.3-0.8) 02/24/24 06:20 Eos # (Auto) 0.1 x10^3/uL (0.0-0.2) 02/24/24 06:20 Baso # (Auto) 0.0 X10^3/uL (0.0-0.1) 02/24/24 06:20 Absolute Nucleated RBC 0.1 /100WBC 02/24/24 06:20 Sodium 136 mmol/L (136-145) 02/24/24 06:20 Corrected Sodium 136 mmol/L (136-145) 02/24/24 06:20 Potassium 3.7 mmol/L (3.5-5.1) 02/24/24 06:20 Chloride 100 mmol/L (98-107) 02/24/24 06:20 Carbon Dioxide 26.5 mmol/L (21-32) 02/24/24 06:20 BUN 15 mg/dL (7-18) 02/24/24 06:20 Creatinine 0.75 mg/dL (0.55-1.02) 02/24/24 06:20 Est GFR (MDRD) Af Amer > 60 (>60) 02/24/24 06:20 Est GFR (MDRD) Non-Af > 60 (>60) 02/24/24 06:20 Glucose 118 mg/dL (65-99) H 02/24/24 06:20 Calcium 8.2 mg/dL (8.5-10.1) L 02/24/24 06:20 Corrected Calcium 8.8 mg/dL (8.5-10.1) 02/24/24 06:20 Total Bilirubin 0.30 mg/dL (0.2-1.0) 02/24/24 06:20 AST 20 Units/L (15-37) 02/24/24 06:20 ALT 28 Units/L (12-78) 02/24/24 06:20 Alkaline Phosphatase 74 Units/L (46-116) 02/24/24 06:20 Total Protein 6.2 g/dL (6.4-8.2) L 02/24/24 06:20 Albumin 3.3 g/dL (3.4-5.0) L 02/24/24 06:20 Globulin 2.9 g/dL (2.5-4.5) 02/24/24 06:20 Albumin/Globulin Ratio 1.1 Ratio (1.1-2.1) 02/24/24 06:20 Specimen Type Clean catch urine 02/24/24 00:23 Urine Color Dark yellow (YELLOW) 02/24/24 00:23 Urine Appearance Hazy (CLEAR) 02/24/24 00:23 Urine pH 6.0 (5.0 - 8.0) 02/24/24 00:23 Ur Specific [place] 1.025 (1.000-1.030) 02/24/24 00:23 Urine Protein 1+ (NEGATIVE) 02/24/24 00:23 Urine Glucose (UA) Negative (NEGATIVE) 02/24/24 00:23 Urine Ketones Negative (NEGATIVE) 02/24/24 00:23 Urine Blood 2+ (NEGATIVE) 02/24/24 00:23 Urine Nitrite Negative (NEGATIVE) 02/24/24 00:23 Urine Bilirubin Negative (NEGATIVE) 02/24/24 00:23 Urine Urobilinogen 1+ (NORMAL) 02/24/24 00:23 Ur Leukocyte Esterase Negative (NEGATIVE) 02/24/24 00:23 Urine RBC 3-5 /HPF (0-3) A 02/24/24 00:23 Urine WBC 0-2 /HPF (0-5) 02/24/24 00:23 Ur Squamous Epith Cells Rare /HPF (NEGATIVE) 02/24/24 00:23 Calcium Oxalate Crystal Moderate /HPF (NEGATIVE) 02/24/24 00:23 Urine Bacteria Negative /HPF (NEGATIVE) 02/24/24 00:23 Ur Culture Indicated? No/not indicated 02/24/24 00:23 Stl Occult Blood (IFOB) Positive (NEGATIVE) A 02/24/24 10:02 Review of Systems Constitutional: Weakness Eyes: No Symptoms Reported ENT: No Symptoms Reported Respiratory: No Symptoms Reported Cardiovascular: No Symptoms Reported Gastrointestinal: Nausea, Abdominal Pain and Constipation Genitourinary: No Symptoms Reported Musculoskeletal: No Symptoms Reported Skin: No Symptoms Reported Neurological: No Symptoms Reported Physical Exam Vital Signs: Vital Signs Temperature 98.7 F Temperature 98.8 F Temperature 98.3 F Pulse Rate [Apical] 60 Pulse Rate [Apical] 76 Pulse Rate 63 Pulse Rate 59 Pulse Rate 61 Pulse Rate 60 Respiratory Rate 17 Respiratory Rate 16 Respiratory Rate 20 Respiratory Rate 20 Respiratory Rate 20 Respiratory Rate 20 Blood Pressure [Right Arm] 147/67 Blood Pressure [Right Arm] 175/74 Blood Pressure 146/99 Blood Pressure 173/77 O2 Sat by Pulse Oximetry 100 O2 Sat by Pulse Oximetry 99 O2 Sat by Pulse Oximetry 99 O2 Sat by Pulse Oximetry 98 O2 Sat by Pulse Oximetry 99 O2 Sat by Pulse Oximetry 99 Oriented: Normal Eyes: Normal Nose: Normal Throat: Normal Respiratory: Clear Throughout Cardiovascular: Normal Auscultation: Bowel Sounds: Normal Tenderness: Diffuse and Mild Skin: Normal Musculoskeletal: Normal Psychiatric: Normal Mood Description: Calm Affect: Normal Speech Pattern: Clear and Appropriate Assessment/Plan (1) Abdominal pain: Qualifiers: Abdominal location: unspecified location Qualified Code(s): R10.9 - Unspecified abdominal pain Status: Acute (2) Constipated: Qualifiers: Constipation type: unspecified constipation type Qualified Code(s): K59.00 - Constipation, unspecified Status: Acute (3) Colitis: Status: Acute (4) Diabetes mellitus: Qualifiers: Diabetes mellitus complication status: without complication Diabetes mellitus rn long term care insulin use: without custodial use Diabetes mellitus type: type 2 Qualified Code(s): E11.9 - Type 2 diabetes mellitus without complications Status: None (5) HTN (hypertension): Qualifiers: Hypertension type: primary hypertension Qualified Code(s): I10 - Essential (primary) hypertension Status: None (6) CAD (coronary artery disease): Qualifiers: Associated angina: unspecified whether angina present Coronary Disease- Associated Artery/Lesion type: unspecified vessel or lesion type [place] vs. transplanted heart: false pass heart Qualified Code(s): I25.10 - Atherosclerotic heart disease of false pass coronary artery without angina pectoris Status: None
[2024-02-24] MEDS: CITROMA PO ONE (13:29)
[2024-02-24] MEDS: FLAGYL IV PREMIX 500 MG BAG 500 MG/100 ML BAG IV SCH (13:30)
[2024-02-24] MEDS: ALPRAZOLAM ODT PO PRN (20:48)
[2024-02-24] MEDS: CRESTOR TAB 10 MG PO SCH (20:49)
[2024-02-25 05:27] LABS: BASOPHILS # (AUTO) 0.1 X10^3/uL (0.0-0.1); EOSINOPHILS # (AUTO) 0.3 x10^3/uL (0.0-0.2); EOSINOPHILS % (AUTO) 5.1 % (0.9-2.9); HEMATOCRIT 32.8 % (36.0-47.0); LYMPHOCYTES % (AUTO) 36.5 % (21.0-51.0); MEAN CORPUSCULAR HEMOGLOBIN 30.3 pg (27.0-34.0); MEAN CORPUSCULAR HGB CONC 33.5 g/dL (33.0-35.0); MEAN CORPUSCULAR VOLUME 90.4 fL (80.0-100.0); MONOCYTES # (AUTO) 0.5 x10^3/uL (0.3-0.8); MONOCYTES % (AUTO) 8.2 % (0.0-13.0); NEUTROPHILS # (AUTO) 2.7 x10^3/uL (2.2-4.8); NEUTROPHILS % (AUTO) 49.2 % (42.0-75.0); PLATELET COUNT 183 X10^3/uL (150.0-450.0); RED BLOOD COUNT 3.63 X10^6/uL (3.5-5.4); RED CELL DISTRIBUTION WIDTH 14.6 % (11.6-16.5); WHITE BLOOD COUNT 5.6 X10^3/uL (3.6-10.0)
[2024-02-25 05:36] LABS: ALANINE AMINOTRANSFERASE 25 Units/L (12-78); ALBUMIN 2.6 g/dL (3.4-5.0); ALKALINE PHOSPHATASE 65 Units/L (46-116); ASPARTATE AMINO TRANSFERASE 18 Units/L (15-37); BLOOD UREA NITROGEN 7 mg/dL (7-18); CALCIUM 7.8 mg/dL (8.5-10.1); CARBON DIOXIDE 31.1 mmol/L (21-32); CHLORIDE 106 mmol/L (98-107); COR CA(FOR HYPOALB) 8.9 mg/dL (8.5-10.1); CREATININE 0.87 mg/dL (0.55-1.02); GLUCOSE 104 mg/dL (65-99); MAGNESIUM 2.2 mg/dL (2.0-2.9); POTASSIUM 4.1 mmol/L (3.5-5.1); SODIUM 139 mmol/L (136-145); TOTAL PROTEIN 5.3 g/dL (6.4-8.2); eGFR NON BLACK RACES > 60 (>60)
--- NOTE | 2024-02-25 08:47 | PCM.DCPLAN ---
DISCHARGE SUMMARY Admission Date Date of Admission: 02/24/24 Discharge Date Discharge Date: 02/25/24 Admission Diagnoses (1) Abdominal pain: Status: Acute (2) Constipated: Status: Acute (3) Colitis: Status: Acute (4) Diabetes mellitus: Status: None (5) HTN (hypertension): Status: None (6) CAD (coronary artery disease): Status: None Discharge Medications Discharge Medications: Home Medication List alprazolam 0.5 mg tablet (Xanax) 0.5 mg PO BID 02/24/24 [History] aspirin 325 mg tablet 325 mg PO QDAY 02/24/24 [History] cholecalciferol (vitamin D3) 25 mcg (1,000 unit) capsule (Vitamin D3) 25 mcg PO QDAY 02/24/24 [History] ferrous sulfate 325 mg (65 mg iron) tablet 325 mg PO QDAY 02/24/24 [History] Prescriptions: Hospital Course Vital Signs: Vital Signs Temperature 97.8 F Pulse Rate [Apical] 50 Respiratory Rate 16 Blood Pressure [Right Arm] 122/58 O2 Sat by Pulse Oximetry 98 Latest Lab Results: Laboratory Last Values WBC 5.6 X10^3/uL (3.6-10.0) 02/25/24 05:00 RBC 3.63 X10^6/uL (3.5-5.4) 02/25/24 05:00 Hgb 11.0 g/dL (12.0-16.0) L 02/25/24 05:00 Hct 32.8 % (36.0-47.0) L 02/25/24 05:00 MCV 90.4 fL (80.0-100.0) 02/25/24 05:00 MCH 30.3 pg (27.0-34.0) 02/25/24 05:00 MCHC 33.5 g/dL (33.0-35.0) 02/25/24 05:00 RDW 14.6 % (11.6-16.5) 02/25/24 05:00 Plt Count 183 X10^3/uL (150.0-450.0) 02/25/24 05:00 MPV 9.0 fL (7.4-11.0) 02/25/24 05:00 Neut % (Auto) 49.2 % (42.0-75.0) 02/25/24 05:00 Lymph % (Auto) 36.5 % (21.0-51.0) 02/25/24 05:00 [place] % (Auto) 8.2 % (0.0-13.0) 02/25/24 05:00 Eos % (Auto) 5.1 % (0.9-2.9) H 02/25/24 05:00 Baso % (Auto) 1.0 % (0.2-1.0) 02/25/24 05:00 Neut # (Auto) 2.7 x10^3/uL (2.2-4.8) 02/25/24 05:00 Lymph # (Auto) 2.0 X10^3/uL (1.3-2.9) 02/25/24 05:00 [place] # (Auto) 0.5 x10^3/uL (0.3-0.8) 02/25/24 05:00 Eos # (Auto) 0.3 x10^3/uL (0.0-0.2) H 02/25/24 05:00 Baso # (Auto) 0.1 X10^3/uL (0.0-0.1) 02/25/24 05:00 Absolute Nucleated RBC 0.1 /100WBC 02/25/24 05:00 Sodium 139 mmol/L (136-145) 02/25/24 05:00 Corrected Sodium TNP 02/25/24 05:00 Potassium 4.1 mmol/L (3.5-5.1) 02/25/24 05:00 Chloride 106 mmol/L (98-107) 02/25/24 05:00 Carbon Dioxide 31.1 mmol/L (21-32) 02/25/24 05:00 BUN 7 mg/dL (7-18) 02/25/24 05:00 Creatinine 0.87 mg/dL (0.55-1.02) 02/25/24 05:00 Est GFR (MDRD) Af Amer > 60 (>60) 02/25/24 05:00 Est GFR (MDRD) Non-Af > 60 (>60) 02/25/24 05:00 Glucose 104 mg/dL (65-99) H 02/25/24 05:00 POC Glucose (mg/dL) 100 mg/dL (65-99) H 02/25/24 05:12 Calcium 7.8 mg/dL (8.5-10.1) L 02/25/24 05:00 Corrected Calcium 8.9 mg/dL (8.5-10.1) 02/25/24 05:00 Magnesium 2.2 mg/dL (2.0-2.9) 02/25/24 05:00 Total Bilirubin 0.30 mg/dL (0.2-1.0) 02/25/24 05:00 AST 18 Units/L (15-37) 02/25/24 05:00 ALT 25 Units/L (12-78) 02/25/24 05:00 Alkaline Phosphatase 65 Units/L (46-116) 02/25/24 05:00 Total Protein 5.3 g/dL (6.4-8.2) L 02/25/24 05:00 Albumin 2.6 g/dL (3.4-5.0) L 02/25/24 05:00 Globulin 2.7 g/dL (2.5-4.5) 02/25/24 05:00 Albumin/Globulin Ratio 1.0 Ratio (1.1-2.1) L 02/25/24 05:00 Specimen Type Clean catch urine 02/24/24 00:23 Urine Color Dark yellow (YELLOW) 02/24/24 00:23 Urine Appearance Hazy (CLEAR) 02/24/24 00:23 Urine pH 6.0 (5.0 - 8.0) 02/24/24 00:23 Ur Specific [place] 1.025 (1.000-1.030) 02/24/24 00:23 Urine Protein 1+ (NEGATIVE) 02/24/24 00:23 Urine Glucose (UA) Negative (NEGATIVE) 02/24/24 00:23 Urine Ketones Negative (NEGATIVE) 02/24/24 00:23 Urine Blood 2+ (NEGATIVE) 02/24/24 00:23 Urine Nitrite Negative (NEGATIVE) 02/24/24 00:23 Urine Bilirubin Negative (NEGATIVE) 02/24/24 00:23 Urine Urobilinogen 1+ (NORMAL) 02/24/24 00:23 Ur Leukocyte Esterase Negative (NEGATIVE) 02/24/24 00:23 Urine RBC 3-5 /HPF (0-3) A 02/24/24 00:23 Urine WBC 0-2 /HPF (0-5) 02/24/24 00:23 Ur Squamous Epith Cells Rare /HPF (NEGATIVE) 02/24/24 00:23 Calcium Oxalate Crystal Moderate /HPF (NEGATIVE) 02/24/24 00:23 Urine Bacteria Negative /HPF (NEGATIVE) 02/24/24 00:23 Ur Culture Indicated? No/not indicated 02/24/24 00:23 Stl Occult Blood (IFOB) Positive (NEGATIVE) A 02/24/24 10:02 Hospital Course: Patient with long history of chronic constipation for which she takes Linzess and stool softeners presented to the ER from home with worsening abdominal pain. PCP had advised oral medications and then enemas after not having a bowel movement for approximately 2 weeks. In the ER they attempted another enema but patient was unable to tolerate secondary to pain. CT showed concerns for colitis along with moderate stool burden. She was admitted on IV antibiotics, Linzess, lactulose. She had 4 bowel movements yesterday with full resolution of her abdominal pain and discomfort. She will be discharged home on daily stool softeners (MiraLAX and docusate) and Linzess to be taken daily to every other day. Patient agreeable to this plan. She was able to tolerate a diet and ambulate around the room without assistance. She has been discharged in improved, stable condition at home.
[2024-02-25] MEDS: GLUCOPHAGE XR 24-HR PO SCH (10:30)
[2024-02-25 11:30] VITALS: BP 125/77; PULSE 53; RESP 17; TEMP 97.9; O2SAT 99
== END 2024-02-25 11:40 | disposition home or self-care (01) ==
LOC: ER 23:49 → ICU 23:49
PROVIDERS: ADMIT Family Medicine; ATTEND Family Medicine
DX: F41.8 Other specified anxiety disorders; E11.65 Type 2 diabetes mellitus with hyperglycemia; K59.09 Other constipation; K92.1 Melena; K21.9 Gastro-esophageal reflux disease without esophagitis; I10 Essential (primary) hypertension; Z65.8 Other specified problems related to psychosocial circumstances; R10.84 Generalized abdominal pain; K52.89 Other specified noninfective gastroenteritis and colitis; E78.5 Hyperlipidemia, unspecified; I25.10 Atherosclerotic heart disease of native coronary artery without angina pectoris